=== PATIENT | male | born 1955 | race Caucasian/White ===

== ENCOUNTER 2017-02-09 18:35 | Emergency (ER) | payer BC ==
[~2017-02-09] VITALS: Ht 172.7 cm; Wt 81.1 kg
[~2017-02-09 18:35] MED LIST: AGM875 PO; ASPEC325; ATEN-173; LISI5TAB3; [UNRECOGNIZED DRUG - OTHER]
[2017-02-09 18:38] VITALS: BP 128/81; TEMP 37; Ht 172.7 cm; Wt 81.1 kg
[2017-02-09] MEDS ORDERED: CIPROFLOXACIN HCL 0.3% OP SOLN 2.5 ML BTL OP ONE (19:45)
[2017-02-09 19:46] VITALS: PULSE 50; O2SAT 95
--- NOTE | 2017-02-10 16:53 | EMERGENCY ROOM VISIT NOTE ---
ED Visit Note First contact with patient: 19:06 Chief Complaint: I think I have a piece of metal in my right eye. History of Present Illness: Mr. Pang is a 61-year-old white male who ambulates into the ED complaining of a foreign body sensation in right eye. 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 Then today he started experiencing right eye pain. This started approximately 2 hours ago and since that time his pain has been constant. Currently he describes his pain as a burning sensation. He rates his discomfort 8/10. His pain is nonradiating. His pain worsens with exposure to bright lights. He has not identified any alleviating factors related to the pain. Associated with his pain he reports he has been having some tearing throughout the day. He denies fevers, headaches, vomiting, visual changes, previous significant eye diseases or surgeries. Review of Systems: As noted above in history of present illness. Past Medical History: Coronary artery disease, hypertension. Current Medications: None reported. Allergies to Medications: Patient denies. Social History: Patient is currently employed; he feels safe in his home environment; he denies tobacco and alcohol use. Tetanus Immunization Status: Patient reports up-to-date. Physical Examination: Vital Signs: Date Time Temp Pulse Resp B/P (MAP) Pulse Ox O2 Delivery O2 Flow Rate FiO2 02/09/17 19:46 50 95 02/09/17 18:38 37.0 58 16 128/81 94 Room Air GENERAL: 61-year-old male in mild distress due to pain, nontoxic-appearing, afebrile and hemodynamically stable. NEUROLOGICAL: Awake, alert and oriented to person, place and time. Answering questions appropriately and following commands. SKIN: Warm, dry and pink. No soft tissue eruptions or trauma noted. HEENT: Atraumatic and normocephalic. PERRLA. EOMI without nystagmus. Moderate light sensitivity. Sclera only injected and conjunctiva pink with drainage of clear tears. No foreign bodies noted under the eyelids. There is a small corneal foreign body at 3 o'clock position. Anterior chamber is clear. On slit lamp examination the foreign body was once again seen but there is no additional uptake of the stain to indicate any other injuries at this time. ED Course: Patient is assessed as noted above. Patient eye was anesthetized with Alcaine. I initially lead tried to sweep the foreign body off the cornea with sterile saline and a sterile Q-tip was unsuccessful. I then used a small tuberculin needle and syringe and was able to lift the foreign body off the cornea without difficulty. On reexamination no rest ring was pleasant and the foreign body was completely removed. Patient was educated about today's findings and instructed on his treatment plan ; he verbalizes understanding and agreement with this plan. Clinical Impression: Right corneal foreign body. Disposition: Patient discharged home in stable condition; prior to departure he was reassessed and subjectively reported that he was pain and symptom-free. Plan: Patient was encouraged use ibuprofen or acetaminophen as needed for pain; he was offered stronger medications and refused. Patient was prescribed Ciloxan ophthalmic solution encouraged to use 2 drops in the right eye every 4 hours while awake for 5 days. Patient was encouraged return to the ED for recheck; he does report that he normally leaves for his job in [place] Sunday so I encouraged him to come into Sunday for reevaluation. Patient was encouraged return ED for uncontrolled pain, visual changes, headaches, vomiting, fevers or any new/concerning symptoms.
== END 2017-02-09 19:45 | disposition home or self-care (01) ==
LOC: C.EDB 18:36 → C.EDD 19:45
DX: T15.01XA Foreign body in cornea, right eye, initial encounter (principal); W45.8XXA Other foreign body or object entering through skin, initial encounter; Y99.0 Civilian activity done for income or pay; I25.10 Atherosclerotic heart disease of native coronary artery without angina pectoris; I10 Essential (primary) hypertension

== ENCOUNTER 2017-02-11 10:23 | Emergency (ER) | payer BC ==
[~2017-02-11] VITALS: Ht 172.7 cm; Wt 80.6 kg
[2017-02-11 10:34] VITALS: Ht 172.7 cm; Wt 80.6 kg
[2017-02-11] MEDS ORDERED: ASPI325T39 PO (11:03)
[2017-02-11] MEDS ORDERED: ASCO10003 PO (11:03)
[2017-02-11] MEDS ORDERED: VALA1TAB31 PO (11:03)
[2017-02-11] MEDS ORDERED: LISI-729 PO (11:03)
[2017-02-11] MEDS ORDERED: OMEG10007 PO (11:03)
[2017-02-11] MEDS ORDERED: VITBC PO (11:03)
[2017-02-11] MEDS ORDERED: NIAC1TAB59 PO (11:03)
[2017-02-11] MEDS ORDERED: CARV6.252 PO (11:03)
[2017-02-11] MEDS ORDERED: ROSU20TA PO (11:03)
--- NOTE | 2017-02-11 11:09 | EMERGENCY ROOM VISIT NOTE ---
ED Visit Note First contact with patient: 10:45 CHIEF COMPLAINT: Right eye recheck HISTORY OF PRESENT ILLNESS: This 61-year-old male presents the ER for recheck after having a foreign body removed from his right eye on Sunday. He was instructed to come back today for recheck for possible rust ring. The patient denies any eye pain or any visual changes. He denies any tearing of the eye. The patient denies any foreign body sensation in his eye but he states it does doesn't feel "normal". He has been compliant with the antibiotic drops. REVIEW OF SYSTEMS: 6 system review was performed and was negative unless stated otherwise in history of present illness. PMH: The patient is healthy; no change from prior ER visit SOCIAL HISTORY: Patient lives at home. PHYSICAL EXAM: Vital Signs: Were reviewed Reviewed Nurse's notes. GENERAL: 61- year-old white male appears in no acute distress. MENTAL Status: Alert and oriented 3. EYES: The pupils are round, equal, and react to light. EOMs are full. There is discharge of clear tears from the injured eye which is injected. Slit lamp exam revealed brown discoloration at the location where the foreign body was removed. There is not a ring formation . EMERGENCY DEPARTMENT COURSE: The patient was evaluated. I discussed with the patient since there is a discoloration in the area where the foreign body was removed then I am recommending that he follow up with ophthalmology for removal of the discoloration. The patient verbalized understanding and was discharged home in stable condition. DIAGNOSIS: Discoloration of the cornea secondary to foreign body DISCHARGE INSTRUCTIONS AND TREATMENT: Continue eyedrops as prescribed. Call Dr. Pardo tomorrow for follow-up appointment for further evaluation of your right eye. Current/Historical Medications Scheduled Ascorbic Acid (Vitamin C), 1,000 MG PO DAILY Aspirin (Aspirin Ec), 325 MG PO DAILY Carvedilol (Coreg), 6.25 MG PO BIDM Fish Oil (Ponce-3), 1 CAP PO DAILY Lisinopril (Prinivil), 5 MG PO DAILY Niacin Ext Rel (Niaspan Ext Rel), 500 MG PO DAILY Rosuvastatin Calcium (Crestor), 20 MG PO DAILY Vitamin B Complex (Vitamin B Complex), 1 TAB PO DAILY Scheduled PRN Valacyclovir Hcl (Valtrex), 1 GM PO BID PRN for OUTBREAKS Allergies Coded Allergies: No Known Allergies (Verified , 02/11/17) Vital Signs Date Time Temp Pulse Resp B/P (MAP) Pulse Ox O2 Delivery O2 Flow Rate FiO2 02/11/17 10:34 36.8 50 20 109/66 97 Room Air Departure Information Referrals No Doctor, Assigned (PCP) [facility] Instructions [facility]
[2017-02-11 11:17] VITALS: BP 109/66; PULSE 50; TEMP 36.8; O2SAT 97
== END 2017-02-11 11:15 | disposition home or self-care (01) ==
LOC: C.EDB 10:24 → C.EDD 11:15
DX: Z09 Encounter for follow-up examination after completed treatment for conditions other than malignant neoplasm (principal); T15.01XD Foreign body in cornea, right eye, subsequent encounter; X58.XXXD Exposure to other specified factors, subsequent encounter; Z79.82 Long term (current) use of aspirin; Z79.899 Other long term (current) drug therapy

== ENCOUNTER → 2017-02-15 | Outpatient (CLI) | payer BC ==
[~2017-02-15] MED LIST changes: -AGM875 PO; +ASCO10003 PO; -ASPEC325; +ASPI325T39 PO; -ATEN-173; +CARV6.252 PO; +LISI-729 PO; -LISI5TAB3; +NIAC1TAB59 PO; +OMEG10007 PO; +ROSU20TA PO; +VALA1TAB31 PO; +VITBC PO; -[UNRECOGNIZED DRUG - OTHER]
[2017-02-15 16:42] LABS: HEMATOCRIT 38.6 % (42-52); MEAN CELL VOLUME 88.3 fL (80-100); MEAN CORPUSCULAR HEMOGLOBIN 31.1 pg (25-34); MEAN CORPUSCULAR HGB CONC 35.2 g/dl (32-36); MEAN PLATELET VOLUME 10.2 fL (7.4-10.4); PLATELET COUNT 217 K/uL (130-400); RED BLOOD COUNT 4.37 M/uL (4.7-6.1); WHITE BLOOD COUNT 6.16 K/uL (4.8-10.8)
[2017-02-15 16:49] LABS: ALT/SGPT 30 U/L (12-78); BLOOD UREA NITROGEN 21 mg/dl (7-18); BUN/CREATININE RATIO 21.3 (10-20); CALCIUM 9.5 mg/dl (8.5-10.1); CARBON DIOXIDE 26 mmol/L (21-32); CHLORIDE 105 mmol/L (98-107); GLUCOSE 178 mg/dl (70-99); POTASSIUM 4.3 mmol/L (3.5-5.1); SODIUM 137 mmol/L (136-145)
[2017-02-15 16:52] LABS: ALB/GLOB RATIO 1.1 (0.9-2); ALKALINE PHOSPHATASE 57 U/L (45-117); AST/SGOT 22 U/L (15-37)
== END | disposition home or self-care (01) ==
LOC: C.LAB1850 15:14
PROVIDERS: ATTEND Physician Assistant
DX: Z11.59 Encounter for screening for other viral diseases (principal); I25.10 Atherosclerotic heart disease of native coronary artery without angina pectoris